=== PATIENT | female | born 1975 | race Caucasian/White ===

== ENCOUNTER 2019-11-17 17:54 | Inpatient (IN) | payer OTHER ==
[2019-11-17 18:43] LABS: Absolute Lymphocytes (CBC) 1.5 K/uL (0.7-4.9); Basophils % 0.4 % (0-1.3); Hematocrit 42.3 % (36.0-45.0); Lymphocytes % 9.1 % (15.3-44.8); MPV 8.1 fL (7.6-11.3); RBC Red Blood Cell Count 4.85 M/uL (3.86-4.86)
[2019-11-17] MEDS ORDERED: NA CHLORIDE 0.9% 1,000 ML ONE (18:46)
[2019-11-17] MEDS ORDERED: MORPHINE 2 MG/ML SYR ONE ×2 (18:46→21:25)
[2019-11-17] MEDS ORDERED: ONDANSETRON 4 MG/2 ML VIAL ONE ×3 (18:46→23:51)
[2019-11-17 18:48] LABS: Urine Blood 3+ (NEG); Urine Glucose NEGATIVE (NEG); Urine Protein NEGATIVE (NEG); Urine Specific Gravity 1.025 (1.005-1.030)
[2019-11-17 18:52] LABS: Urine Bacteria >50 /HPF (<20); Urine Culture Reflex Order REFLEXED; Urine Mucus 2+ /HPF (NONE SEEN)
[2019-11-17 18:59] LABS: Albumin 4.2 g/dL (3.4-5.0); Bilirubin Direct 0.2 mg/dL (0-0.2); Bilirubin Total 0.8 mg/dL (0.2-1.0); Potassium 3.4 mmol/L (3.5-5.1); Protein, Total 8.4 g/dL (6.4-8.2)
[2019-11-17 19:12] LABS: Urine White Blood Cell Casts OK
[2019-11-17 19:13] LABS: Blood Morphology Comment NOT SEEN (NOT SEEN); Platelet Estimate ADEQ
--- NOTE | 2019-11-17 21:00 | RAD REPORT ---
EXAM DESCRIPTION: CTAbdomen Pelvis W Contrast - 11/17/2019 8:51 pm CLINICAL HISTORY: Abdominal pain. RLQ abdomen pain COMPARISON: No comparisons TECHNIQUE: Biphasic CT imaging of the abdomen and pelvis was performed with 100 ml non-ionic IV cont rast. All CT scans are performed using dose optimization technique as appropriate and may include automated exposure control or mA/KV adjustment according to patient size. FINDINGS: The lung bases are clear. The liver, spleen, pancreas, adrenal glands and kidneys are within normal limits. No bowel obstruction, free air, intra-abdominal free fluid or abscess. The appendix is thickened and 9 mm with trace periappendiceal fat stranding suspicious for early acute appendicitis. No evidence of significant lymphadenopathy. No suspicious bony findings. Small volume of pelvic free fluid seen. IMPRESSION: Early acute appendicitis suspected.
[2019-11-17] MEDS ORDERED: PIPER/TAZO/NS 3.375gm 3.375 GM/100 ML BAG ONE (21:16)
--- NOTE | 2019-11-17 21:16 | ER ---
Nurse's Notes [facility] Name: Isabella Munoz Age: 43 yrs Sex: Female : 1975 Arrival Date: 11/17/2019 Time: 17:59 Bed 19 Private MD: Diagnosis: Acute appendicitis Presentation: 11/16 18:06 Chief complaint: Patient states: RLQ pain since 11am. Reports tenderness on the RLQ ca1 pain. Pain is aggravated by walking and movement. Reports temp of 100.3F at 1400. Denies urinary symptoms. Coronavirus screen: Proceed with normal triage. Patient denies a cough. Patient denies shortness of breath or difficulty breathing. Patient denies measured and/or subjective temperature greater than 100.4F prior to today's visit. Patient denies travel on a cruise ship or to a country the [facility] currently lists as an affected area. Patient denies contact with known and/or suspected case of COVID-19. Ebola Screen: Patient negative for fever greater than or equal to 101.5 degrees Fahrenheit, and additional compatible Ebola Virus Disease symptoms Patient denies exposure to infectious person. Patient denies travel to an Ebola-affected area in the 21 days before illness onset. No symptoms or risks identified at this time. Risk Assessment: Do you want to hurt yourself or someone else? Patient reports no desire to harm self or others. Onset of symptoms was November 17, 2019 at 11:00. 18:06 Method Of Arrival: Ambulatory ca1 18:06 Acuity: DAVIS 3 ca1 18:06 Initial Sepsis Screen: Does the patient meet any 2 criteria? No. Patient's initial ca1 sepsis screen is negative. Does the patient have a suspected source of infection? No. Patient's initial sepsis screen is negative. 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 - Social history:: Smoking status: Patient denies any tobacco usage or history of. Screenin:03 Abuse screen: Denies threats or abuse. Nutritional screening: No deficits noted. ll1 Tuberculosis screening: No symptoms or risk factors identified. Fall Risk IV access (20 points). Ambulatory Aid- None/Bed Rest/Nurse Assist (0 pts). Gait- Normal/Bed Rest/Wheelchair (0 pts) Total Angelo Fall Scale indicates No Risk (0-24 pts). Assessment: 18:52 General: Appears uncomfortable, Behavior is calm, cooperative. Pain: Complains of pain ll1 in RLQ Pain currently is 8 out of 10 on a pain scale. Quality of pain is described as aching. Neuro: No deficits noted. Cardiovascular: No deficits noted. Respiratory: No deficits noted. GI: Abdomen is flat, Bowel sounds present X 4 quads. Abd is soft Abdomen is tender to palpation in right lower quadrant Patient currently denies diarrhea, nausea, vomiting. : Denies burning with urination. 19:50 Reassessment: No changes from previously documented assessment. Patient and/or family ll1 updated on plan of care and expected duration. Pain level reassessed. Patient is alert, oriented x 3, equal unlabored respirations, skin warm/dry/pink. 20:50 Reassessment: No changes from previously documented assessment. Patient and/or family ll1 updated on plan of care and expected duration. Pain level reassessed. Patient is alert, oriented x 3, equal unlabored respirations, skin warm/dry/pink. 21:50 Reassessment: No changes from previously documented assessment. Patient and/or family ll1 updated on plan of care and expected duration. Pain level reassessed. Patient is alert, oriented x 3, equal unlabored respirations, skin warm/dry/pink. Vital Signs: 18:06 BP 136 / 100; Pulse 129; Resp 17; Temp 99.8(O); Pulse Ox 98% on R/A; Weight 65.77 kg ca1 (R); Height 5 ft. 1 in. (154.94 cm) (R); Pain 8/10; 18:51 BP 128 / 80; Pulse 118; Resp 16; Pulse Ox 100% ; ll1 20:01 BP 121 / 84; Pulse 94; Resp 16; Pulse Ox 97% ; Pain 6/10; ll1 21:26 BP 132 / 84; Pulse 95; Resp 16; Pulse Ox 100% ; Pain 7/10; ll1 22:03 Temp 98.9; ll1 18:06 Body Mass Index 27.40 (65.77 kg, 154.94 cm) ca1 ED Course: 17:59 Patient arrived in ED. bp1 18:09 Triage completed. ca1 18:10 Arm band placed on right wrist. ca1 18:13 Fredrick Ramirez PA is PHCP. cp 18:13 Lisa Kurtz MD is Attending Physician. cp 18:18 Suki Eid, RN is Primary Nurse. ll1 18:53 Patient has correct armband on for positive identification. Bed in low position. Call ll1 light in reach. Side rails up X 1. Pulse ox on. NIBP on. Lights dimmed. Warm blanket given. Pillow given. 18:53 Inserted saline lock: 20 gauge in right antecubital area, using aseptic technique. ll1 Blood collected. 20:51 CT Abd/Pelvis - PO and IV Contrast In Process Unspecified. EDMS 21:15 Sravan Lowe MD is Hospitalizing Provider. cp 21:46 XRAY Chest (1 view) In Process Unspecified. EDMS 21:56 Fredrick Mitchell MD is Attending Physician. cp 22:03 No provider procedures requiring assistance completed. Patient admitted, IV remains in ll1 place. Administered Medications: 18:50 Drug: morphine 2 mg Route: IVP; Site: right antecubital; ll1 20:17 Follow up: Response: No adverse reaction; Pain is decreased; RASS: Alert and Calm (0) ll1 18:51 Drug: NS 0.9% 1000 ml Route: IV; Rate: 1 bolus; Site: right antecubital; ll1 20:16 Follow up: Response: No adverse reaction; IV Status: Completed infusion; IV Intake: ll1 950ml 18:51 Drug: Zofran (Ondansetron) 4 mg Route: IVP; Site: right antecubital; ll1 20:17 Follow up: Response: No adverse reaction; RASS: Alert and Calm (0) ll1 20:18 Drug: NS 0.9% 1000 ml Route: IV; Rate: 125 ml/hr; Site: right antecubital; ll1 21:35 Follow up: Response: No adverse reaction; IV Status: Completed infusion; IV Intake: ll1 150ml 21:17 Drug: Zosyn 3.375 grams Route: IVPB; Infused Over: 60 mins; Site: right antecubital; ll1 22:05 Follow up: Response: No adverse reaction; RASS: Alert and Calm (0); IV Status: Infusion ll1 continued 21:24 Drug: morphine 2 mg Route: IVP; Site: right antecubital; ll1 22:06 Follow up: Response: No adverse reaction; Pain is decreased ll1 21:30 CANCELLED (Physician Discretion): Potassium Chloride 10 mEq IV at calculated rate once; cp administer over 1-2 hours 21:49 CANCELLED (incorrect order): NS 0.9% 1000 ml IV at 125 ml/hr continuous ll1 21:49 Drug: NS 0.9% with KCl 20 mEq/L 1000 ml Route: IV; Rate: 125 ml/hr; Site: right ll1 antecubital; 22:05 Follow up: Response: No adverse reaction; IV Status: Infusion continued; IV Intake: [id number] Intake: 20:16 IV: 950ml; Total: 950ml. ll1 21:35 IV: 150ml; Total: 1100ml. ll1 22:05 IV: 50ml; Total: 1150ml. 1 Outcome: 21:15 Decision to Hospitalize by Provider. cp 22:03 Admitted to OR accompanied by nurse, family with patient, via stretcher. ll1 22:03 Condition: stable 22:03 Instructed on the need for admit, Demonstrated understanding of instructions. 22:04 Patient left the ED. 1 Signatures: Dispatcher [employer] EDFredrick Lopes PA PA cp Dee Antonio RN RN ca1 Suki Eid RN RN ll1 Kalie Dyson
--- NOTE | 2019-11-17 21:16 | EDPHYS ---
Physician Documentation [facility] Name: Isabella Munoz Age: 43 yrs Sex: Female : 1975 Arrival Date: 11/17/2019 Time: 17:59 Bed 19 Private MD: ED Physician Fredrick Mitchell HPI: 11/15 18:30 This 43 yrs old Female presents to ER via Ambulatory with complaints of Abdominal Pain. cp 18:30 The patient presents with abdominal pain in the lower abdomen. Onset: The cp symptoms/episode began/occurred this morning. The symptoms do not radiate. Associated signs and symptoms: Pertinent positives: anorexia, nausea, Pertinent negatives: constipation, diarrhea, dysuria, fever, vomiting. The symptoms are described as constant. Severity of pain: in the emergency department the pain is actually worse. 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 - Social history:: Smoking status: Patient denies any tobacco usage or history of. ROS: 18:35 Constitutional: Negative for body aches, chills, fever, poor PO intake. cp 18:35 Eyes: Negative for injury, pain, redness, and discharge. cp 18:35 ENT: Negative for drainage from ear(s), ear pain, sore throat. 18:35 Respiratory: Negative for cough. 18:35 Abdomen/GI: Positive for abdominal pain, nausea, Negative for vomiting, diarrhea, constipation, black/tarry stool, rectal bleeding. 18:35 Back: Negative for radiated pain. 18:35 : Negative for urinary symptoms, vaginal bleeding, vaginal discharge. 18:35 All other systems are negative. Exam: 11/15 18:45 Constitutional: The patient appears in no acute distress, alert, awake, non-toxic, well cp developed, well nourished, uncomfortable. 18:45 Head/Face: Normocephalic, atraumatic. cp 18:45 Eyes: Periorbital structures: appear normal, Conjunctiva: normal, no exudate, no injection, Sclera: no appreciated abnormality, Lids and lashes: appear normal, bilaterally. 18:45 ENT: External ear(s): are unremarkable, Nose: is normal, Mouth: is normal, Posterior pharynx: is normal, airway is patent. 18:45 Chest/axilla: Inspection: normal. 18:45 Cardiovascular: Rate: tachycardic, Rhythm: regular. 18:45 Respiratory: the patient does not display signs of respiratory distress, Respirations: normal, no use of accessory muscles, labored breathing, is not present, Breath sounds: are clear throughout, no decreased breath sounds. 18:45 Abdomen/GI: Inspection: abdomen appears normal, Bowel sounds: active, all quadrants, Palpation: soft, in all quadrants, moderate abdominal tenderness, in the right lower quadrant, rebound tenderness, is not appreciated, voluntary guarding, is elicited in the right lower quadrant. 11/16 21:56 ECG was reviewed by the Attending Physician. Vital Signs: 18:06 BP 136 / 100; Pulse 129; Resp 17; Temp 99.8(O); Pulse Ox 98% on R/A; Weight 65.77 kg ca1 (R); Height 5 ft. 1 in. (154.94 cm) (R); Pain 8/10; 18:51 BP 128 / 80; Pulse 118; Resp 16; Pulse Ox 100% ; ll1 20:01 BP 121 / 84; Pulse 94; Resp 16; Pulse Ox 97% ; Pain 6/10; ll1 21:26 BP 132 / 84; Pulse 95; Resp 16; Pulse Ox 100% ; Pain 7/10; ll1 22:03 Temp 98.9; ll1 18:06 Body Mass Index 27.40 (65.77 kg, 154.94 cm) ca1 MDM: 18:23 Patient medically screened. cp 18:30 Differential diagnosis: appendicitis, Endometriosis, Pyelonephritis, Ureterolithiasis, cp urinary tract infection, ovarian cyst. 21:10 Data reviewed: vital signs, nurses notes, lab test result(s), radiologic studies, CT cp scan, I have discussed the patient's presentation/case with the attending Emergency Department Physician; and as a result, I will admit patient. 21:15 Physician consultation: Sravan Lowe MD was called at 21:10, was contacted at 21:10, regarding admission, to the operating room. 11/16 18:22 Order name: Basic Metabolic Panel; Complete Time: 19:56 cp 11/16 18:22 Order name: CBC with Diff; Complete Time: 19:56 11/16 19:56 Interpretation: Normal except: WBC 16.5; MORIAH% 86.5; LYM% 9.1; NEUT A 14.3. cp / 18:22 Order name: Hepatic Function; Complete Time: 19:56 cp 11/16 18:22 Order name: Lipase; Complete Time: 19:56 cp 11/16 18:22 Order name: Urine Microscopic Only; Complete Time: 19:56 cp 11/16 19:56 Interpretation: Normal except: UWBC 10-20; URBC 5-10; UBACT >50; SQEPI 5-10. 11/16 18:45 Order name: Urine Dipstick--Ancillary (enter results); Complete Time: 19:56 11/16 18:24 Order name: CT Abd/Pelvis - PO and IV Contrast; Complete Time: 21:05 11/16 21:06 Interpretation: Report reviewed. 11/16 18:45 Order name: Urine --Ancillary (enter results); Complete Time: 19:56 11/16 18:53 Order name: Urine Culture EDDC 11/16 19:13 Order name: CBC Smear Scan; Complete Time: 19:56 [facility] 11/16 21:30 Order name: PT-INR 11/16 21:30 Order name: Ptt, Activated cp 11/16 21:30 Order name: XRAY Chest (1 view) 11/16 18:22 Order name: IV Saline Lock; Complete Time: 18:51 11/16 18:22 Order name: Labs collected and sent 11/16 18:22 Order name: Urine Dipstick-Ancillary (obtain specimen); Complete Time: 18:41 cp 11/16 18:22 Order name: Urine Test (obtain specimen); Complete Time: 18:41 11/16 21:30 Order name: EKG; Complete Time: 21:30 11/16 21:30 Order name: EKG - Nurse/Tech; Complete Time: 22:05 cp EC:56 Rate is 97 beats/min. Rhythm is regular. NE interval is normal. QRS interval is normal. cp QT interval is normal. Interpreted by me. Reviewed by me. Administered Medications: 18:50 Drug: morphine 2 mg Route: IVP; Site: right antecubital; ll1 20:17 Follow up: Response: No adverse reaction; Pain is decreased; RASS: Alert and Calm (0) ll1 18:51 Drug: NS 0.9% 1000 ml Route: IV; Rate: 1 bolus; Site: right antecubital; ll1 20:16 Follow up: Response: No adverse reaction; IV Status: Completed infusion; IV Intake: ll1 950ml 18:51 Drug: Zofran (Ondansetron) 4 mg Route: IVP; Site: right antecubital; ll1 20:17 Follow up: Response: No adverse reaction; RASS: Alert and Calm (0) ll1 20:18 Drug: NS 0.9% 1000 ml Route: IV; Rate: 125 ml/hr; Site: right antecubital; ll1 21:35 Follow up: Response: No adverse reaction; IV Status: Completed infusion; IV Intake: ll1 150ml 21:17 Drug: Zosyn 3.375 grams Route: IVPB; Infused Over: 60 mins; Site: right antecubital; ll1 22:05 Follow up: Response: No adverse reaction; RASS: Alert and Calm (0); IV Status: Infusion ll1 continued 21:24 Drug: morphine 2 mg Route: IVP; Site: right antecubital; ll1 22:06 Follow up: Response: No adverse reaction; Pain is decreased ll1 21:30 CANCELLED (Physician Discretion): Potassium Chloride 10 mEq IV at calculated rate once; cp administer over 1-2 hours 21:49 CANCELLED (incorrect order): NS 0.9% 1000 ml IV at 125 ml/hr continuous ll1 21:49 Drug: NS 0.9% with KCl 20 mEq/L 1000 ml Route: IV; Rate: 125 ml/hr; Site: right ll1 antecubital; 22:05 Follow up: Response: No adverse reaction; IV Status: Infusion continued; IV Intake: [id number] Disposition: 11/17 09:10 Co-signature as Attending Physician, Fredrick Mitchell MD I agree with the assessment and corinna plan of care. Disposition: 11/17/19 21:15 Hospitalization ordered by Sravan Lowe for Observation. Preliminary diagnosis is Acute appendicitis. - Bed requested for Operating Room. - Status is Observation. ll1 - Condition is Stable. - Problem is new. - Symptoms have improved. Signatures: Dispatcher [employer] EDFredrick Hong MD MD cha Page, Corey, PA PA cp Dee Antonio RN RN ca1 Suki Eid RN RN ll1 Corrections: (The following items were deleted from the chart) 11/16 21:30 21:11 Potassium Chloride 10 mEq IV at calculated rate once; administer over 1-2 hours cp ordered. cp 21:49 21:31 NS 0.9% 1000 ml IV at 125 ml/hr continuous ordered. cp ll1 22:04 21:15 Hospitalization Ordered by Sravan Lowe MD for Observation. Preliminary ll1 diagnosis is Acute appendicitis. Bed requested for Operating Room. Status is Observation. Condition is Stable. Problem is new. Symptoms have improved. cp
[2019-11-17] MEDS ORDERED: NS KCL 20MEQ 1,000 ML IV ONE (21:38)
[2019-11-17 22:05] LABS: Protime INR 1.03
[2019-11-17] MEDS ORDERED: Ringers Lactate 1,000 ML IV ONE (22:23)
[2019-11-17] MEDS ORDERED: SUCCINYLCHOLINE 20 MG/ML (10 ML) IV ONE (22:37)
[2019-11-17] MEDS ORDERED: propofoL 200 MG/20 ML VIAL IV ONE (22:40)
[2019-11-17] MEDS ORDERED: FENTANYL CITR 250 MCG/5 ML ONE (22:40)
[2019-11-17] MEDS ORDERED: MIDAZOLAM HCL 2 MG/2 ML INJ ONE (22:40)
[2019-11-17] MEDS ORDERED: ROCURONIUM 50 MG/5 ML VIAL IV ONE (22:40)
[2019-11-17] MEDS ORDERED: MORPHINE 2 MG/ML SYR IV PRN (22:58)
[2019-11-17] MEDS ORDERED: SODIUM CHLORIDE 0.9% 10ML INJ IV PRN (22:58)
[2019-11-17] MEDS ORDERED: HYDROCODONE/APAP 5/325 MG TAB PO PRN (22:58)
--- NOTE | 2019-11-17 23:00 | P.BOP ---
Preoperative diagnosis: acute appendicitis, peritonitis Postoperative diagnosis: same Primary procedure: Laparoscopic appendectomy Estimated blood loss: <10cc Specimen: sera Findings: as above Anesthesia: General Complications: None Transferred to: Recovery Room Condition: Good
[2019-11-17] MEDS ORDERED: GLYCOPYRROLATE 0.2 MG/ML SYR ONE ×2 (23:26→23:27)
[2019-11-17] MEDS ORDERED: NEOSTIGMINE 1 MG/ML -5 ML ONE (23:26)
[2019-11-17] MEDS ORDERED: dexAMETHasone 10 MG/ML VIAL ONE (23:27)
[2019-11-17] MEDS: HYDROMORPHONE HCL 1 MG/ML INJ ONE ×2 (23:47→23:52)
[2019-11-17] MEDS ORDERED: MEPERIDINE HCL 25 MG/0.5 ML ONE (23:52)
[2019-11-17] MEDS ORDERED: KETOROLAC 30 MG/ML INJ ONE (23:52)
[2019-11-17] MEDS ORDERED: MORPHINE 4 MG/ML SYR ONE (23:58)
[2019-11-18] MEDS ORDERED: CEFOXITIN/SWI 1gm 1 GM/10 ML SYR ONE (00:43)
[2019-11-18] MEDS ORDERED: METRONIDAZOLE 500mg IVPB 500 MG/100 ML BAG IV ONE (00:43)
[2019-11-18 01:25] VITALS: BMI 27.3
[2019-11-18] MEDS: NA CHLORIDE 0.9% 1,000 ML IV SCH ×2 (02:41→09:00)
--- NOTE | 2019-11-18 03:17 | HP ---
Date of Admission: 11/17/2019 Reason For Service: Acute appendicitis. History Of Present Illness: This is the case of a 43-year-old patient, who came to us with abdominal pain, started this morning associated with fever, right lower quadrant pain, nausea, and vomiting. No dysuria, hematuria, hematochezia, or melena. No recent traveling out of the country, no family me mbers sick at home. No shortness breath. Patient was seen in ER, diagnosed with acute appendicitis. Surgical consultation was done for emergent surgery on admission. Review of Systems: Ten points otherwise unremarkable Allergies: NONE. Past Medical Problems: None. Surgical History: C-sections. Family History: Noncontributory. Physical Examination: General: Patient is awake and alert. HEENT: Pupils are equal and reactive. Anicteric. Neck: Supple. Chest: Clear. Heart: S1, S2. Abdomen: Soft and depressible. Right lower quadrant tenderness with Nuno sign and psoas sign posi tive. Pelvic: Deferred. Breast: Deferred. Rectal: Deferred. Extremities: Good capillary refill. Neurologic: Cranial nerves 2 through 12 grossly within normal limits. Laboratory Data: WBC count of 16. CAT scan shows acute appendicitis. Assessment: This is a 43-year-old patient who shows acute appendicitis. The patient will be brought emergently to the operating room for laparoscopic possible open appendectomy with benefits, alternat jennifer, and risks, including, but not limited to infection, bleeding, damage to adjacent structures, an esthesia complication, negative appendix, [place], and even . She also understands this may not reli luiz any symptoms, she might need more than one surgical intervention. The OR was emergently called. BOSSMAN/MIRANDA Voice ID: [id number]
--- NOTE | 2019-11-18 03:23 | OP ---
Date of Procedure: 11/17/2019 Surgeon: Sravan Lowe MD Preoperative Diagnoses: Peritonitis, acute appendicitis. Postoperative Diagnoses: Peritonitis, acute appendicitis, and incarcerated umbilical hernia. Procedure: 1.Laparoscopic appendectomy. 2.Repair of incarcerated umbilical hernia. Anesthesia: General plus local. Complications: None. Indications: This is the case of a 43-year-old patient, who comes to us with acute abdominal pain, d iagnosed with acute appendicitis. The benefits, alternatives, and risks of laparoscopic, possible op en appendectomy fully explained, which include but are not limited to infection, bleeding, damage to adjacent structures, anesthesia complication, choledocholithiasis, bile leak, pancreatitis, NM, and e vilma . She also understands this may not relieve any symptoms. She might need more than one jatinder gical intervention. She understood and signed a consent. Description Of Procedure: Patient was brought to the operating room, placed in supine position, prep ped and draped in a sterile fashion. Marcaine 0.5% was injected for local anesthetic, followed by sh getachew incision of the skin in the infraumbilical region. Once we went there, we noted the patient have umbilical hernia with incarcerated omentum. Hernia sac was removed from the umbilical skin. Hernia sac was opened and noticed incarcerated omentum. Some of that have to be suture ligated and the res t was removed with the hernia sac and that gave us access to the peritoneum. We placed Vicryl #1 ins deon the fascia. Tony trocar was carefully introduced. No bleeding was obtained. I placed 2 more trocars, 5 mm each. One of them in the suprapubic and left lower quadrant using same technique under direct visualization. After that, we visualized the area of the appendix. It shows an inflamed, as ymmetrical in shape and color appendix. We created a window in the base of the appendix, transected that with an Endo MECCA 45 mm 3.5, and the mesoappendix with an Endo MECCA 45 mm 2.5. Appendix removed f rom abdominal cavity using an EndoCatch through the umbilical incision. The area was irrigated. No bleeding. At that moment, I proceeded to remove the trocars under direct vision. Deflated the pneum operitoneum. Closed the fascia with #1 Vicryl. Irrigated subcutaneous incision, closed that with 3- 0 chromic and skin with jenny. Sponge count and instrument counts were correct. Patient tolerated the procedure well. The area of the her umbilical hernia was also closed with #1 Vicryl. Patient t olerated the procedure well. Patient was sent to recovery in stable condition. BOSSMAN/MIRANDA Voice ID: [id number] Report ID: [id number]
[2019-11-18] MEDS: METRONIDAZOLE 500mg IVPB 500 MG/100 ML BAG IV SCH ×3 (05:13→12:29)
[2019-11-18] MEDS: ONDANSETRON 4 MG/2 ML VIAL IV PRN ×2 (05:21→10:38)
[2019-11-18] MEDS ORDERED: CEFOXITIN SODIUM 1 GM/VIAL ONE (05:35)
[2019-11-18 05:46] LABS: Absolute Lymphocytes (CBC) 0.4 K/uL (0.7-4.9); Basophils % 0.1 % (0-1.3); Hematocrit 36.3 % (36.0-45.0); Lymphocytes % 4.3 % (15.3-44.8); MPV 8.4 fL (7.6-11.3); RBC Red Blood Cell Count 4.11 M/uL (3.86-4.86)
[2019-11-18 05:56] LABS: Potassium 4.2 mmol/L (3.5-5.1)
[2019-11-18] MEDS: CEFOXITIN 1 GM in NA CHLORIDE 0.9% 100 ML IVPB SCH ×4 (06:04→12:29)
[2019-11-18] MEDS ORDERED: NA CHLORIDE 0.9% 100 ML ONE (06:09)
--- NOTE | 2019-11-18 08:23 | EKG ---
Test Date: 2019-11-17 Test Time: 21:49:55 Online Content Developer: CHRISTIANOT MEASUREMENT RESULTS: Intervals: Rate: 97 NM: 150 QRSD: 76 QT: 348 QTc: 441 [place]: P: 44 NM: 150 QRS: 21 T: 39 INTERPRETIVE STATEMENTS: Normal sinus rhythm Cannot rule out Anterior infarct, age undetermined Abnormal ECG No previous ECG available for comparison Electronically Signed On 11-18-19 08:22:22 CDT by Presley Zapata
--- NOTE | 2019-11-18 08:50 | RAD REPORT ---
EXAM DESCRIPTION: RAD - Chest Single View - 11/17/2019 9:46 pm CLINICAL HISTORY: pre-op, appendicitis pending surgery COMPARISON: None TECHNIQUE: AP portable chest image was obtained 11/17/2019 9:46 pm . FINDINGS: Lung volumes are low. Lungs are clear. No failure or volume overload. Heart and vasculatur e are normal. No measurable pleural effusion and no pneumothorax. No acute bony abnormality seen. No acute aortic findings suspected. IMPRESSION: No acute cardiopulmonary process.
[2019-11-18] MEDS ORDERED: PANTOPRAZOLE 40 MG INJ IVP SCH (09:00)
[2019-11-18 09:08] VITALS: O2SAT 94
--- NOTE | 2019-11-18 14:09 | P.DS ---
Admission Date: 11/17/19 Discharge Date: 11/18/19 Disposition: ROUTINE DISCHARGE Discharge Condition: GOOD Vital Signs/Physical Exam: Temp Pulse Resp BP Pulse Ox 97.8 F 95 H 18 91/55 L 98 11/18/19 08:00 11/18/19 08:00 11/18/19 08:00 11/18/19 08:00 11/18/19 08:00 General: Alert, Oriented x3, Cooperative HEENT: PERRLA, EOMI Neck: Supple Respiratory: Normal air movement Cardiovascular: No edema Gastrointestinal: Soft and benign Musculoskeletal: No erythema, No tenderness, No warmth Integumentary: No rashes, No breakdown, No erythema, No warmth, No cyanosis Neurological: Normal speech Laboratory Data at Discharge: WBC 10.4 K/uL (4.3-10.9) D 11/18/19 05:08 Hgb 12.4 g/dL (12.0-15.0) 11/18/19 05:08 Hct 36.3 % (36.0-45.0) 11/18/19 05:08 Plt Count 274 K/uL (152-406) 11/18/19 05:08 PT 12.2 SECONDS (9.5-12.5) 11/17/19 21:43 INR 1.03 11/17/19 21:43 APTT 31.4 SECONDS (24.3-36.9) 11/17/19 21:43 Sodium 138 mmol/L (136-145) 11/18/19 05:08 Potassium 4.2 mmol/L (3.5-5.1) 11/18/19 05:08 BUN 12 mg/dL (7-18) 11/18/19 05:08 Creatinine 0.78 mg/dL (0.55-1.3) 11/18/19 05:08 Glucose 148 mg/dL (74-106) H 11/18/19 05:08 Total Bilirubin 0.8 mg/dL (0.2-1.0) 11/17/19 18:25 AST 85 U/L (15-37) H 11/17/19 18:25 ALT 68 U/L (12-78) 11/17/19 18:25 Alkaline Phosphatase 74 U/L (45-117) 11/17/19 18:25 Lipase 60 U/L (73-393) L 11/17/19 18:25 Home Medications: Amox/Clavulanate [Augmentin 875-125 Tab] 875 mg PO BID #12 tab 11/18/19 Codeine/APAP [Tylenol W/Codeine #3 tab] 1 tab PO Q4HP PRN #30 tab 11/18/19 New Medications: Amox/Clavulanate [Augmentin 875-125 Tab] 875 mg PO BID #12 tab Codeine/APAP [Tylenol W/Codeine #3 tab] 1 tab PO Q4HP PRN #30 tab PRN Reason: Pain Patient Discharge Instructions: Keep area intact for 24 h then may remove outer dressing and shower. Cover jenny with triple abx and band aid Diet: AHA Activity: No lifting more than 10 lbs Followup: Sravan Lowe MD [ACTIVE - CAN ADMIT] - 1 Week
[2019-11-18 15:07] VITALS: BP 97/55; TEMP 98.1
== END 2019-11-18 15:10 | disposition home or self-care (01) | DRG 339 ==
LOC: ER 17:54 → 2ND 23:20
PROVIDERS: ADMIT Surgery; ATTEND Surgery
PROC: 0WQF4ZZ Repair Abdominal Wall, Percutaneous Endoscopic Approach (ICD-10-PCS; 2019-11-17)
PROC: 0DTJ4ZZ Resection of Appendix, Percutaneous Endoscopic Approach (ICD-10-PCS; principal; 2019-11-17 22:00)
DX: K35.33 Acute appendicitis with perforation, localized peritonitis, and gangrene, with abscess (principal); K42.0 Umbilical hernia with obstruction, without gangrene
CPT/HCPCS: 36415; 71045; 74177; 80048; 80076; 81003; 81015; 81025; 83690; 85025; 85610; 85730; 87077; 87086; 87088; 87186; 88302; 88304; 93005; 96361; 96365; 96375; 99285; C9113; J0330; J0694; J1100; J1170; J2175; J2250; J2270; J2405; J2543; J2704; J2710; J3010; J7030; J7120; Q9967